=== PATIENT | female | born 1980 | race African-American/Black ===

== ENCOUNTER 2017-03-27 22:50 | Emergency (ER) | payer OTHER ==
[~2017-03-27] VITALS: Ht 170.2 cm; Wt 113.4 kg
--- NOTE | ~2017-03-27 | CT4 ---
[facility] A Service of [facility] RADIOLOGY TEXT RESULTS PATIENT: KRISTINA HANEY LOCATION: [facility] : 78 UNIT #: [id number] AGE: [address]: Asaf Haines MD SEX: F ORDER DR: [id number] [facility] [address] [place], [place] [address] [id number] E MR#: [id number] #: [id number] NAME: KRISTINA HANEY : 1980 SEX: F STUDY DATE/TIME: 03/28/2017 0:48 UNIT: RICHY ROOM: STUDY DESCRIPTION: CT Abd and Pelv Wo Cont Attending Physician: Asaf Haines M.D. Ordering Physician: Asaf Haines M.D. Primary Care Physician: Chester Villarreal M.D. MEDICAL IMAGING REPORT This report is preliminary unless electronic signature is present EXAM CT abdomen and pelvis about contrast. DATE 03/28/2017 HISTORY Left flank and abdominal pain since 9:30 yesterday. Vomiting and nausea. COMPARISON None. TECHNIQUE 3 mm noncontrast axial images through the abdomen and pelvis. Enteric contrast was not administered. Sagittal and coronal reformatted images were obtained. This CT exam was performed with one or more of the following radiation dose reduction techniques: automatic exposure control, adjustment of mA and/or kV according to patient size, and iterative reconstruction. FINDINGS ABDOMEN FINDINGS: A 2 mm stone is seen within the urinary bladder just past the left ureterovesical junction. There is [id number] left hydronephrosis and hydroureter. No additional ureteral stone is identified. A 2 mm nonobstructing stone is seen within the left lower renal pole. No right renal or ureteral calculi are identified. Lung bases are free of consolidation. Noncontrast appearance of the liver, gallbladder, spleen, pancreas, and atrial glands within normal limits. Small umbilical hernia contains only fat. Appendix is normal. Limited evaluation bowel due to lack of enteric contrast but no focal bowel inflammation is seen. [facility] A Service of [facility] RADIOLOGY TEXT RESULTS PATIENT: KRISTINA HANEY [id number] : 78 UNIT #: [id number] AGE: [address]: Asaf Haines MD SEX: F ORDER DR: PELVIS FINDINGS: Bilateral fallopian tube occlusion devices in place. Rectum is normal. No pelvic adenopathy or free fluid. No acute osseous abnormality. IMPRESSION 1. 2 mm stone in the urinary bladder just past the left ureterovesical junction. There is [id number] left hydronephrosis and hydroureter. 2. 2 mm nonobstructing stone in the left lower renal pole. 3. Normal appendix. 4. Bilateral fallopian tube occlusion devices in place. 5. Small umbilical hernia containing only fat. Dictated by... Marcie Rashid M.D. THIS IS AN ELECTRONICALLY VERIFIED REPORT Marcie Rashid M.D. at 03/28/2017 9:52 PM JEOVANY/waleska TD: 03/28/2017 12:03 JOB #: [id number] MEDICAL IMAGING REPORT Page 1 of 1 COPY
[2017-03-28 00:45] LABS: URINE SOURCE CLEAN CATCH
[2017-03-28 00:49] LABS: BASOPHIL# 0.1 X10e3 (0-0.3); DIFF IND NO; EOSINOPHIL# 0.1 X10e3 (0-0.7); EOSINOPHIL% 0.9 % (0.0-7.0); HEMOGLOBIN 11.8 gm/dL (12.0-16.0); LYMPHOCYTE# 2.5 X10e3 (1.0-3.5); LYMPHOCYTE% 42.7 % (17.0-45.0); MEAN CELL VOLUME 86.9 FL (83-96); MEAN CORPUSCULAR HEMOGLOBIN 28.5 PG (28-34); MEAN CORPUSCULAR HGB CONC 32.8 g/dL (30-36); MEAN PLATELET VOLUME 8.1 FL (6.5-11.5); MONOCYTE# 0.4 X10e3 (0-1.0); MONOCYTE% 7.7 % (3.0-12.0); NEUTROPHIL# 2.8 X10e3 (1.5-7.1); NEUTROPHIL% 47.7 % (40-75); PLATELET COUNT 284 X10e3 (140-420); RED BLOOD COUNT 4.14 X10e (3.90-5.30); WHITE BLOOD COUNT 5.8 X10e3 (4.0-10.5)
[2017-03-28 00:50] LABS: URINE APPEARANCE CLOUDY; URINE BILIRUBIN NEG (NEG); URINE BLOOD 2+ (NEG); URINE COLOR YELLOW; URINE GLUCOSE NEG (NEG); URINE KETONE NEG (NEG); URINE LEUKOCYTE ESTERASE 1+ (NEG); URINE NITRATE NEG (NEG); URINE PH 7.5 (5-8); URINE PROTEIN TRACE (NEG); URINE SPECIFIC GRAVITY 1.034 (1.003-1.035)
[2017-03-28 00:53] LABS: CULTURE INDICATED? YES; URBCS1 AUWI 25-50 /[HPF] (0-2); URINE BACTERIA AUWI 4+ (NEGATIVE); URINE SQUAMOUS EPITHELIAL CELL MOD /[HPF]; UWBCS1 AUWI 25-50 (0-5)
[2017-03-28 01:19] LABS: BUN/CREATININE RATIO 11.33; CALCIUM SERUM 8.6 mg/dL (8.4-10.2); CREATININE SERUM 1.5 mg/dL (0.6-1.4); GLOM FILT RATE Estimated 50.7 mL/min (>60); POTASSIUM 3.2 mmol/L (3.5-5.1)
== END 2017-03-28 02:02 | disposition home or self-care (01) ==
LOC: CED 22:50 → EDBD 22:50 → CED 23:59
PROVIDERS: Emergency Medicine
DX: N13.2 Hydronephrosis with renal and ureteral calculous obstruction (principal)
CPT/HCPCS: 36415; 74176; 80048; 81003; 84703; 85025; 87086; 96361; 96365; 96375; 99284; J0696; J1170; J1885; J2405